=== PATIENT | male | born 1955 | race Two or more races ===

== ENCOUNTER 2023-04-30 01:50 | Emergency (ER) | payer OTHER ==
[~2023-04-30] VITALS: Ht 175.3 cm; Wt 85.7 kg
[2023-04-30] MEDS ORDERED: LIPITOR20 MG PO (02:00)
[2023-04-30] MEDS ORDERED: KETO10TA2 PO (03:50)
== END 2023-04-30 04:24 ==
LOC: ER 01:50
DX: S49.81XA Other specified injuries of right shoulder and upper arm, initial encounter (principal); W01.0XXA Fall on same level from slipping, tripping and stumbling without subsequent striking against object, initial encounter; Y93.89 Activity, other specified; Y92.520 Airport as the place of occurrence of the external cause